=== PATIENT | male | born 1980 | race Caucasian/White ===

== ENCOUNTER 2023-03-09 08:42 | Emergency (ER) | payer OTHER ==
[~2023-03-09] VITALS: Ht 30.5 cm; Wt 0.5 kg
[2023-03-09 09:05] LABS: HEMATOCRIT. 42.6 % (42.0-52.0); HEMOGLOBIN. 14.6 g/dL (14.0-18.0); MEAN CORPUSCULAR HEMOGLOBIN 32.2 pg (28.0-32.0); MEAN CORPUSCULAR VOLUME 93.9 fL (80.0-94.0); MEAN PLATELET VOLUME 8.3 fl (7.4-10.4); PLATELET 289 x1000/uL (130-400); RED BLOOD CELL COUNT 4.53 mill/uL (4.7-6.1); RED CELL DISTRIBUTION WIDTH 13.1 % (11.6-14.6)
[2023-03-09 09:12] LABS: CHLORIDE 98 mEq/L (98-107)
[2023-03-09 09:21] LABS: CREATINE KINASE 480 IU/L (39-308); ETHANOL BLOOD < 10 mg/dL
[2023-03-09] MEDS ORDERED: LORAZEPAM 2MG/ML CPJ IV ONE (09:45)
[2023-03-09 10:14] LABS: PLATELET ESTIMATE NORMAL
[2023-03-09] MEDS ORDERED: NIMODIPINE 30MG CAPSULE PO ONE (11:00)
[2023-03-09] MEDS ORDERED: MANNITOL 12.5G (25%) VIAL 50ML IV ONE (11:00)
[2023-03-09] MEDS ORDERED: NICARDIPINE 40MG/200ML PREMIX 200 ML IV PRN (11:00)
[2023-03-09] MEDS ORDERED: LEVETIRACETAM 1000MG PREMIX 100 ML IV ONE (11:00)
[2023-03-09] MEDS ORDERED: MIDAZOLAM HCL 2 MG/2 ML VIAL IV ONE (11:00)
[2023-03-09] MEDS ORDERED: VECURONIUM BROMIDE 10 MG/VIAL IV ONE (11:00)
[2023-03-09] MEDS ORDERED: MIDAZOLAM HCL 100 MG in DEXT 5% WATER 80 ML IV ONE (11:00)
[2023-03-09] MEDS ORDERED: ETOMIDATE 2MG/ML 10ML VIAL IV ONE (11:00)
[2023-03-09] MEDS ORDERED: ETOMIDATE 2MG/ML 10ML VIAL IV NR (11:15)
[2023-03-09] MEDS ORDERED: MIDAZOLAM HCL 100 MG in DEXT 5% WATER 80 ML IV SCH (11:15)
[2023-03-09] MEDS ORDERED: VECURONIUM BROMIDE 10 MG/VIAL IV NR (11:15)
[2023-03-09] MEDS ORDERED: MIDAZOLAM HCL 2 MG/2 ML VIAL IV NR (11:15)
[2023-03-09 11:36] LABS: INR 1.2; PROTHROMBIN TIME 12.4 sec (9.6-11.0)
[2023-03-09] MEDS ORDERED: PROPOFOL 10MG/ML 100ML 100 ML IV SCH (12:00)
[2023-03-09 12:06] VITALS: BP 162/92
== END 2023-03-09 11:55 | disposition short-term general hospital (02) ==
LOC: ER 08:42 → CANBEDREQ 11:19 → ER 11:55
DX: I60.9 Nontraumatic subarachnoid hemorrhage, unspecified (principal); I10 Essential (primary) hypertension; G93.40 Encephalopathy, unspecified; F12.10 Cannabis abuse, uncomplicated; F15.10 Other stimulant abuse, uncomplicated
CPT/HCPCS: 31500; 36415; 70450; 71045; 80053; 80320; 82550; 83605; 84484; 85025; 85610; 87040; 93005; 96365; 96375; 99291; J1953; J2060; J2150; J2250; J2704; J7060; Z7610; 94002; G0480